=== PATIENT | male | born 1945 | race Caucasian/White ===

== ENCOUNTER → 2018-04-13 09:42 | Outpatient (CLI) | payer MEDICARE, SELFPAY ==
[2018-04-13 11:22] LABS: PSA,Total - Annual Screen 1.92 ng/mL (0.00-4.00)
== END ==
PROVIDERS: Family Provider Family Medicine; PCP Family Medicine; Visit Provider Urology
DX: Z12.5 Encounter for screening for malignant neoplasm of prostate (principal)
CPT/HCPCS: 36415; 84153; G0103

== ENCOUNTER → 2019-04-14 10:12 | Outpatient (CLI) | payer MEDICARE, SELFPAY ==
[2015-11-28 08:10] VITALS: BMI 44.7
[2019-04-14 11:17] LABS: PSA,Total - Annual Screen 2.96 ng/mL (0.00-4.00)
== END ==
PROVIDERS: Family Provider Family Medicine; PCP Family Medicine; Referring Provider Urology; Visit Provider Urology
DX: Z12.5 Encounter for screening for malignant neoplasm of prostate (principal)
CPT/HCPCS: 36415; 84153; G0103

== ENCOUNTER → 2025-01-26 | Outpatient (CLI) | payer MEDICARE, SELFPAY ==
[2025-01-26 13:48] LABS: PSA,Total - Annual Screen 3.07 ng/mL (0.02-4.00)
== END | disposition home or self-care (01) ==
LOC: LAB 10:39
PROVIDERS: PCP Family Medicine; Referring Provider Urology; Visit Provider Urology
DX: Z12.5 Encounter for screening for malignant neoplasm of prostate (principal)
CPT/HCPCS: 36415; 84153; G0103